=== PATIENT | male | born 1935 | race Caucasian/White ===

== ENCOUNTER 2019-01-31 10:43 | Observation (INO) | payer MEDICARE, OTHER, MEDICAID ==
[2019-01-31] MEDS: ASPIRIN 325 MG TAB PO (10:59)
[2019-01-31 11:15] LABS: ADD MAN DIFF? NO
[2019-01-31 11:17] LABS: BASOPHILS % 0.5 % (0.0-2.0); EOSINOPHILS # 0.2 10^3/ul (0.0-0.5); EOSINOPHILS % 2.7 % (0.0-7.0); HEMATOCRIT 41.3 % (42.0-52.0); HEMOGLOBIN 13.3 g/dl (14.0-18.0); LYMPHOCYTES # 1.6 10^3/ul (0.8-2.9); LYMPHOCYTES % 23.6 % (15.0-51.0); MEAN CORPUSCULAR HEMOGLOBIN 28.8 pg (29.0-33.0); MEAN CORPUSCULAR HGB CONC 32.2 g/dl (32.0-37.0); MEAN CORPUSCULAR VOLUME 89.4 fl (82.0-101.0); MEAN PLATELET VOLUME 8.6 fl (7.4-10.4); MONOCYTE # 0.6 10^3/ul (0.3-0.9); MONOCYTES % 8.4 % (0.0-11.0); NEUTROPHIL # 4.3 10^3/ul (1.6-7.5); NEUTROPHILS % 64.6 % (39.0-77.0); PLATELET COUNT 184 10^3/UL (140-415); RED BLOOD COUNT 4.62 10^6/ul (4.70-6.10); RED CELL DISTRIBUTION WIDTH 13.6 % (11.5-14.5)
[2019-01-31 11:17] LABS: WHITE BLOOD COUNT 6.7 10^3/ul (4.8-10.8)
[2019-01-31 11:37] LABS: ANION GAP 5 (5-13); BLOOD UREA NITROGEN 21 mg/dl (7-20); CALCIUM 9.5 mg/dl (8.4-10.2); CARBON DIOXIDE 30 mmol/L (21-31); CHLORIDE 109 mmol/L (97-110); GLUCOSE 130 mg/dl (70-220); POTASSIUM 5.3 mmol/L (3.5-5.1); SODIUM 144 mmol/L (135-144)
[2019-01-31 11:46] LABS: B-TYPE NATRIURETIC PEPTIDE 200 PG/ML (0-450)
[2019-01-31 11:49] LABS: TROPONIN-I < 0.012 ng/ml (0.000-0.120)
[2019-01-31] MEDS ORDERED: ONDANSETRON 4 MG INJ IV (13:00)
[2019-01-31] MEDS ORDERED: ACETAMINOPHEN 325 MG TAB PO (13:00)
[2019-01-31] MEDS: FUROSEMIDE 20 MG INJ IV (16:26)
[2019-01-31 16:40] LABS: ADD UMIC YES; UR ASCORBIC ACID 20 mg/dL (NEGATIVE); UR BILIRUBIN (Dip) NEGATIVE (NEGATIVE); UR BLOOD (Dip) NEGATIVE (NEGATIVE); UR CLARITY CLEAR (CLEAR); UR COLOR YELLOW (YELLOW); UR GLUCOSE (Dip) NEGATIVE (NEGATIVE); UR KETONES (Dip) NEGATIVE (NEGATIVE); UR LEUKOCYTE ESTERASE (Dip) NEGATIVE Leu/ul (NEGATIVE); UR NITRITE (Dip) NEGATIVE (NEGATIVE); UR RBC 0 /HPF (0-5); UR SPECIFIC GRAVITY (Dip) 1.016 (1.003-1.030); UR TOTAL PROTEIN (Dip) 1+ mg/dl (NEGATIVE); UR UROBILINOGEN (Dip) NEGATIVE (NEGATIVE); UR WBC 0 /HPF (0-5)
[2019-01-31 17:50] LABS: ANION GAP 8 (5-13)
[2019-01-31 17:51] LABS: CREATINE KINASE 32 IU/L (23-200)
[2019-01-31 17:55] LABS: BLOOD UREA NITROGEN 22 mg/dl (7-20); CALCIUM 9.4 mg/dl (8.4-10.2); CARBON DIOXIDE 25 mmol/L (21-31); CHLORIDE 108 mmol/L (97-110); CREATININE 1.14 mg/dl (0.61-1.24); GLUCOSE 173 mg/dl (70-220); POTASSIUM 4.3 mmol/L (3.5-5.1); SODIUM 141 mmol/L (135-144)
[2019-01-31 18:02] LABS: B-TYPE NATRIURETIC PEPTIDE 196 PG/ML (0-450)
[2019-01-31 18:03] LABS: CK INDEX 1.7; CK-MB 0.55 ng/ml (0.0-2.4); TROPONIN-I < 0.012 ng/ml (0.000-0.120)
[2019-01-31] MEDS: TAMSULOSIN (SR) 0.4 MG CAP PO (21:00)
[2019-01-31] MEDS: ATORVASTATIN 40 MG TAB PO (21:34)
[2019-01-31] MEDS: APIXABAN 5 MG TABLET PO (21:34)
[2019-01-31 22:42] LABS: CREATINE KINASE 30 IU/L (23-200)
[2019-01-31 22:55] LABS: CK INDEX 1.7; CK-MB 0.51 ng/ml (0.0-2.4); TROPONIN-I < 0.012 ng/ml (0.000-0.120)
[2019-02-01] MEDS: PANTOPRAZOLE (EC) 40 MG TAB PO (05:52)
[2019-02-01] MEDS: DUTASTERIDE 0.5 MG CAP PO (08:37)
[2019-02-01] MEDS: TAMSULOSIN (SR) 0.4 MG CAP PO (08:37)
[2019-02-01] MEDS: APIXABAN 5 MG TABLET PO (08:38)
[2019-02-01] MEDS: METOPROLOL (XL) 25 MG TAB PO (08:38)
[2019-02-01] MEDS: FUROSEMIDE 20 MG INJ IV (11:39)
== END 2019-02-01 13:13 | disposition home or self-care (01) ==
LOC: E/R 10:43 → 6WM 13:01
DX: R07.89 Other chest pain (principal); N17.9 Acute kidney failure, unspecified; I48.0 Paroxysmal atrial fibrillation; R55 Syncope and collapse; E87.5 Hyperkalemia; I10 Essential (primary) hypertension; E78.00 Pure hypercholesterolemia, unspecified; E78.5 Hyperlipidemia, unspecified; N40.0 Benign prostatic hyperplasia without lower urinary tract symptoms; D50.9 Iron deficiency anemia, unspecified; Z86.718 Personal history of other venous thrombosis and embolism; Z86.711 Personal history of pulmonary embolism; Z79.02 Long term (current) use of antithrombotics/antiplatelets; Z79.01 Long term (current) use of anticoagulants
CPT/HCPCS: 71045; 76775; 80048; 81001; 82550; 82553; 83880; 84443; 84484; 85025; 93005; 93306; 99217; 99285-25